=== PATIENT | female | born 1995 | race Caucasian/White ===

== ENCOUNTER 2017-01-30 09:57 | Emergency (ER) | payer OTHER ==
[2017-01-30] MEDS ORDERED: NS 1,000 ML IV ONE (10:58)
[2017-01-30] MEDS ORDERED: DEXAMETHASONE 10 MG/ML VIAL IVP ONE (10:58)
[2017-01-30] MEDS ORDERED: METOCLOPRAMIDE 10 MG/2 ML VIAL IVP ONE (10:58)
[2017-01-30] MEDS ORDERED: KETOROLAC 30 MG/1 ML SDV IVP ONE (10:58)
[2017-01-30 11:47] VITALS: PULSE 75; RESP 18
--- NOTE | 2017-01-30 12:34 | EDPHY ---
H & P Time Seen by Provider: 01/30/17 10:50 HPI/ROS: CHIEF COMPLAINT: Headache and worsening migraine HISTORY OF PRESENT ILLNESS: 21-year-old woman has a long history of migraine headaches and this ones identical to previous except she was vomiting some which she could not get her medications down. Symptoms started 3 days ago, not thunderclap in onset or worst of life. Identical to previous migraines with it being a headache on the top right side of her head associated with nausea and vomiting worse with bright light. No neck pain and no dizziness, no weakness or numbness in extremities, no vertigo or ataxia, no trouble with speech or balance. REVIEW OF SYSTEMS: Eye: no change in vision ENT: no sore throat Cardiac: no chest pain or syncope Pulmonary: no cough or SOB Abdomen: No abdominal pain Musculoskeletal: no back pain or neck pain Skin: no rash Neuro: HPI Constitutional: no fever : no urinary symptoms A comprehensive 10 point review of systems is otherwise negative aside from elements mentioned in the history of present illness. PAST MEDICAL HISTORY: Migraine headache Social history: Here with her mother, denies Family history: Positive for migraines. General Appearance: Alert and conversant, cooperative. Eyes: No scleral icterus. ENT, Mouth: Normal mucous membranes. Normal TMs. Respiratory: Normal respiratory effort, breath sounds equal, lungs are clear to auscultation. Cardiovascular: Regular rate and rhythm. Gastrointestinal: Abdomen is soft and non tender. Neurological: Alert and oriented x3. Normally conversant. Face symmetric, normal movement and sensation in all extremities. No pronator drift and normal [id number] bilaterally. Skin: Warm and dry, no rashes. Musculoskeletal: No peripheral edema and no joint swelling. Normal range of motion of the neck, no meningeal signs. Psychiatric: Not agitated. Emergency Department course/MDM: Patient presents with typical migraine symptoms for her with worsening nausea. Treated with 10 mg IV dexamethasone, 10 mg IV Reglan, 25 mg IV Benadryl, 30 mg IV Toradol. 1230: Sleeping, easily awakened, headache is almost completely gone, ready for discharge. Smoking Status: Never smoked Constitutional: Initial Vital Signs Temperature (C) 37 C 01/30/17 10:04 Heart Rate 71 01/30/17 10:04 Respiratory Rate 16 01/30/17 10:04 Blood Pressure 106/58 L 01/30/17 10:04 O2 Sat (%) 99 01/30/17 10:04 O2 Delivery Mode Room Air Allergies/Adverse Reactions: Penicillins Allergy (Verified 01/30/17 10:02) Home Medications: Medication Instructions Recorded AMITRIPTYLINE HCL 01/30/17 Compazine 01/30/17 Indomethacin 01/30/17 Nexplanon 01/30/17 Ondansetron Odt [Zofran Odt] 4 mg PO Q4PRN #6 tab 01/30/17 Relpax 01/30/17 Medical Decision Making Differential Diagnosis: Differential diagnosis considered for headache including but not limited to subarachnoid hemorrhage, migraine headache, tension headache and infectious causes such as meningitis, pharyngitis and sinusitis. - Data Points Medications Given: Discontinued Medications Dexamethasone (Decadron Injection) 10 mg IVP EDNOW ONE Stop: 01/30/17 10:59 Last Admin: 01/30/17 11:37 Dose: 10 mg Diphenhydramine HCl (Benadryl Injection) 25 mg IVP EDNOW ONE Stop: 01/30/17 10:59 Last Admin: 01/30/17 11:38 Dose: 25 mg Sodium Chloride (Ns) 1,000 mls @ 0 mls/hr IV ONCE ONE; Wide Open PRN Reason: Protocol Stop: 01/30/17 10:59 Last Admin: 01/30/17 11:35 Dose: 1,000 mls Ketorolac Tromethamine (Toradol) 30 mg IVP EDNOW ONE Stop: 01/30/17 10:59 Last Admin: 01/30/17 11:36 Dose: 30 mg Metoclopramide HCl (Reglan Injection) 10 mg IVP EDNOW ONE Stop: 01/30/17 10:59 Last Admin: 01/30/17 11:39 Dose: 10 mg Departure - Departure Disposition: Home, Routine, Self-Care Clinical Impression: Migraine headache Qualifiers: Migraine type: unspecified Status migrainosus presence: without status migrainosus Intractability: not intractable Qualified Code(s): G43.909 - Migraine, unspecified, not intractable, without status migrainosus Condition: Good Instructions: Migraine Headache (ED) Referrals: Reena Chong MD [Medical Doctor] - As per Instructions Prescriptions: Ondansetron Odt [Zofran Odt] 4 mg PO Q4PRN #6 tab
[2017-01-30 13:09] VITALS: BP 90/47; TEMP 98.4; O2SAT 95
== END 2017-01-30 13:09 | disposition home or self-care (01) ==
DX: G43.909 Migraine, unspecified, not intractable, without status migrainosus (principal); E86.9 Volume depletion, unspecified
CPT/HCPCS: 96374; J1100; J1200; J1885; J2765

== ENCOUNTER 2017-05-13 14:30 | Emergency (ER) | payer OTHER ==
[2017-05-13 14:45] VITALS: TEMP 98.6
[2017-05-13] MEDS ORDERED: NS 1,000 ML IV ONE (15:15)
[2017-05-13 15:39] LABS: PLATELET COUNT 192 10^3/uL (150-400)
[2017-05-13] MEDS ORDERED: DEXAMETHASONE 10 MG/ML VIAL IVP ONE (15:54)
[2017-05-13] MEDS ORDERED: KETOROLAC 30 MG/1 ML SDV IVP ONE (15:54)
[2017-05-13] MEDS ORDERED: METOCLOPRAMIDE 10 MG/2 ML VIAL IVP ONE (15:54)
[2017-05-13 16:13] VITALS: RESP 16
--- NOTE | 2017-05-13 17:08 | EDPHY ---
H & P Smoking Status: Never smoked Time Seen by Provider: 05/13/17 15:28 HPI/ROS: CHIEF COMPLAINT: Migraine headache HISTORY OF PRESENT ILLNESS: 21-year-old female presents to the emergency department with symptoms of migraine headache. The patient has longstanding history of migraine headaches since the age of 7. She states that this headache started approximately 5 days ago. It was not abrupt or thunderclap in onset. It feels like a typical migraine although this is more the front of her head. She feels nauseous and has vomited multiple times which is common for her. She is photophobic although no other change in vision. No neck or back pain. No reported trauma. No chest pain or difficulty breathing. Denies fever. Denies URI symptoms. She does have a scheduled appointment with her neurologist at the end of this month. She does not take maintenance medication for migraine headaches. She has had typically bad headaches every month. REVIEW OF SYSTEMS: Constitutional: No fever, no chills. Eyes: No double or blurry vision. ENT: No sore throat. Respiratory: No cough, no shortness of breath. Cardiac: No chest pain. Gastrointestinal: Nausea, vomiting. No abdominal pain or diarrhea. Genitourinary: No dysuria. Musculoskeletal: No neck or back pain. Skin: No rashes. Neurological: headache. (Negra Walker) Past Medical/Surgical History: Migraine headaches (Negra Walker) Social History: Lives with family in [place]. (Negra Walker) Physical Exam: General Appearance: Alert, no distress. Mentating normally and answering questions appropriately. Father at bedside. Patient is resting in a darkened room. Eyes: Pupils equal and round. Extraocular motions are all intact. ENT: Mouth: Mucous membranes moist. Respiratory: No wheezing, rhonchi, or rales, lungs are clear to auscultation. Cardiovascular: Regular rate and rhythm. Gastrointestinal: Abdomen is soft and nontender, no masses, no rebound or guarding, bowel sounds normal. Neurological: Alert and oriented x 3, cranial nerves II through XII grossly intact Skin: Warm and dry, no rashes. Musculoskeletal: Nontender to palpate along the cervical, thoracic or lumbar spine. Neck is supple. Extremities: Full range of motion and no peripheral edema. Psychiatric: Patient is oriented X 3, there is no agitation. (Negra Walker) Constitutional: Initial Vital Signs Temperature (C) 37 C 05/13/17 14:35 Heart Rate 63 05/13/17 14:35 Respiratory Rate 18 05/13/17 14:35 Blood Pressure 108/70 05/13/17 14:35 O2 Sat (%) 100 05/13/17 14:35 O2 Delivery Mode Room Air Allergies/Adverse Reactions: Penicillins Allergy (Verified 01/30/17 10:02) Home Medications: Medication Instructions Recorded Compazine 01/30/17 Nexplanon 01/30/17 Ondansetron Odt [Zofran Odt] 4 mg PO Q4PRN #6 tab 01/30/17 Relpax 01/30/17 Medical Decision Making ED Course/Re-evaluation: 21-year-old female presents to the emergency department with headache. The patient has a history of chronic migraine headaches. She feels that this headache is worse in that it has lasted for 5 days. She also states that the pattern is a bit different in that her pain is in the front of her head. She is nauseous and has been vomiting which is common for her. She is photophobic. She otherwise has a normal neurologic examination. I did discuss with the patient as well as father at bedside obtaining CT scan of her brain. The patient was medicated with dexamethasone, Toradol, Benadryl, and Phenergan IV. She also received IV normal saline. Her laboratory studies were all within normal limits. The patient states that she felt so dehydrated that she had urinated in nearly 2 days. Her creatinine was normal. Patient was re-evaluated and her headache was completely resolved. The patient is comfortable not obtaining CT imaging of her brain. I think this is reasonable. Patient was instructed to return to the emergency department she developed change in symptoms, worsening headache, altered mental status or any other concerns. (Negra Walker) Differential Diagnosis: Headache including but not limited to subarachnoid hemorrhage, migraine headache , tension headache and infectious causes such as meningitis, pharyngitis and sinusitis. (Negra Wakler) Other Provider: The patient was evaluated and managed by the Physician Bioprocess Engineer. My co- signature indicates that I have reviewed this chart and I agree with the findings and plan of care as documented. I am the secondary supervising physician. (Prisca Marvin) - Data Points Laboratory Results: Laboratory Results 05/13/17 15:20 05/13/17 15:20 Medications Given: Discontinued Medications Dexamethasone (Decadron Injection) 10 mg IVP EDNOW ONE Stop: 05/13/17 15:55 Last Admin: 05/13/17 16:04 Dose: 10 mg Diphenhydramine HCl (Benadryl Injection) 25 mg IVP EDNOW ONE Stop: 05/13/17 15:55 Last Admin: 05/13/17 16:04 Dose: 25 mg Sodium Chloride (Ns) 1,000 mls @ 0 mls/hr IV ONCE ONE PRN Reason: Wide Open Stop: 05/13/17 15:16 Last Admin: 05/13/17 16:05 Dose: 1,000 mls Ketorolac Tromethamine (Toradol) 30 mg IVP EDNOW ONE Stop: 05/13/17 15:55 Last Admin: 05/13/17 16:04 Dose: 30 mg Metoclopramide HCl (Reglan Injection) 10 mg IVP EDNOW ONE Stop: 05/13/17 15:55 Last Admin: 05/13/17 16:04 Dose: 10 mg Departure - Departure Disposition: Home, Routine, Self-Care Clinical Impression: Migraine Qualifiers: Migraine type: unspecified Status migrainosus presence: without status migrainosus Intractability: not intractable Qualified Code(s): G43.909 - Migraine, unspecified, not intractable, without status migrainosus Condition: Good Instructions: Migraine Headache (ED) Additional Instructions: Follow-up with urine neurologist as scheduled at the end of the month. Please return to the emergency department sooner if you have any change in symptoms or if you feel worse. Referrals: [facility] [Other] - As per Instructions
[2017-05-13 17:14] VITALS: BP 108/58; PULSE 80; O2SAT 96
== END 2017-05-13 17:14 | disposition home or self-care (01) ==
DX: G43.909 Migraine, unspecified, not intractable, without status migrainosus (principal); R11.2 Nausea with vomiting, unspecified
CPT/HCPCS: 96374; J1100; J1200; J1885; J2765

== ENCOUNTER 2018-07-21 18:09 | Emergency (ER) | payer OTHER ==
[2018-07-21] MEDS ORDERED: METOCLOPRAMIDE 10 MG/2 ML VIAL IVP ONE (20:02)
[2018-07-21] MEDS ORDERED: LORazepam 2 MG/ML INJ IVP ONE (20:02)
[2018-07-21] MEDS ORDERED: DEXAMETHASONE 10 MG/ML VIAL IVP ONE (20:02)
[2018-07-21] MEDS ORDERED: KETOROLAC 30 MG/1 ML SDV IVP ONE (20:02)
[2018-07-21] MEDS ORDERED: NS 1,000 ML IV ONE (20:03)
--- NOTE | 2018-07-21 21:28 | EDPHY ---
H & P Stated Complaint: Hx complex migraines, migraine today cN/V and R side numb. Time Seen by Provider: 07/21/18 19:48 HPI/ROS: Chief complaint: Migraine headache History of present illness: This is a 22-year-old female who presents to the emergency department for a migraine headache. She reports the onset of a typical type headache earlier tonight. She reports initially blurry vision followed by right-sided head pain and numbness along the right side of her body as well as nausea and vomiting and photophobia. She took her home migraine medications but threw them back up. She states this is a typical migraine for her. There is nothing new or different as compared to previous episodes. It was not thunderclap in nature. It is not the worst headache she has ever had. She denies associated signs or symptoms including no fevers or cold symptoms, no trauma. Review of systems: A 10 point review of systems was obtained and other than described above was negative. - Personal History Current Tetanus Diphtheria and Acellular Pertussis (TDAP): Yes - Medical/Surgical History Hx Asthma: No Hx Chronic Respiratory Disease: No Hx Diabetes: No Hx Cardiac Disease: No Hx Renal Disease: No Hx Cirrhosis: No Hx Alcoholism: No Hx HIV/AIDS: No Hx Splenectomy or Spleen Trauma: No Other PMH: MIGRAINE - Social History Smoking Status: Never smoked - Physical Exam Exam: General Appearance: Alert, nontoxic. Eyes: Pupils equal and round no pallor or injection. ENT, Mouth: Mucous membranes moist. Respiratory: There are no retractions, lungs are clear to auscultation. Cardiovascular: Regular rate and rhythm. Gastrointestinal: Abdomen is soft and non tender, no masses, bowel sounds normal. Neurological: Alert and oriented x4. Cranial nerves 2-12 grossly intact. Strength and sensation intact and symmetrical. No meningismus. Skin: Warm and dry, no rashes. Musculoskeletal: Neck is supple non tender. Extremities are symmetrical, full range of motion. Psychiatric: Patient is oriented X 3, there is no agitation. Constitutional: Initial Vital Signs Temperature (C) 36.8 C 07/21/18 18:19 Heart Rate 52 L 07/21/18 18:19 Respiratory Rate 16 07/21/18 18:19 Blood Pressure 89/57 L 07/21/18 18:19 O2 Sat (%) 97 05/13/19 18:19 O2 Delivery Mode Room Air Allergies/Adverse Reactions: Penicillins Allergy (Verified 07/21/18 18:19) Home Medications: Medication Instructions Recorded Compazine 01/30/17 Nexplanon 01/30/17 Ondansetron Odt [Zofran Odt] 4 mg PO Q4PRN #6 tab 01/30/17 Relpax 01/30/17 Medical Decision Making ED Course/Re-evaluation: Patient seen under the supervision of my secondary supervising physician Dr. Ivana Meneses. Patient presents to the emergency department for a migraine headache. She reports a typical type headache. Not controlled with home medications which has occurred in the past. No red flag risk factors are noted such as thunderclap in nature, worst headache of her life or focal neurologic deficits on exam. She is symptomatically treated with a migraine cocktail which has worked well for her in the past and states her symptoms have almost resolved. She is comfortable being discharged home. Home care is discussed. She is to follow up with a primary care doctor for recheck. Strict return precautions are given. The patient voiced understanding and agreement with plan. Differential Diagnosis: Included but not limited to migraine headache, tension headache, cluster headache, doubtful intracranial bleed or mass - Data Points Medications Given: Discontinued Medications Dexamethasone (Decadron Injection) 10 mg IVP EDNOW ONE Stop: 07/21/18 20:03 Last Admin: 07/21/18 20:20 Dose: 10 mg Diphenhydramine HCl (Benadryl Injection) 25 mg IVP EDNOW ONE Stop: 07/21/18 20:03 Last Admin: 07/21/18 20:19 Dose: 25 mg Sodium Chloride (Ns) 1,000 mls @ 0 mls/hr IV EDNOW ONE; Wide Open PRN Reason: Protocol Stop: 07/21/18 20:04 Last Admin: 07/21/18 20:17 Dose: 1,000 mls Ketorolac Tromethamine (Toradol) 30 mg IVP EDNOW ONE Stop: 07/21/18 20:03 Last Admin: 07/21/18 20:20 Dose: 30 mg Lorazepam (Ativan Injection) 1 mg IVP EDNOW ONE Stop: 07/21/18 20:03 Last Admin: 07/21/18 20:18 Dose: 1 mg Metoclopramide HCl (Reglan Injection) 10 mg IVP EDNOW ONE Stop: 07/21/18 20:03 Last Admin: 07/21/18 20:21 Dose: 10 mg Departure - Departure Disposition: Home, Routine, Self-Care Clinical Impression: Migraine Qualifiers: Migraine type: unspecified Status migrainosus presence: without status migrainosus Intractability: not intractable Qualified Code(s): G43.909 - Migraine, unspecified, not intractable, without status migrainosus Condition: Good Instructions: Migraine Headache (ED) Additional Instructions: Follow-up with your primary care doctor this week for recheck His symptoms recur or new symptoms develop please return to the emergency room for recheck Referrals: Renae Adkins DO [Primary Care Provider] - As per Instructions
[2018-07-21 21:48] VITALS: BP 95/59
== END 2018-07-21 21:47 | disposition home or self-care (01) ==
DX: G43.909 Migraine, unspecified, not intractable, without status migrainosus (principal); E86.9 Volume depletion, unspecified
CPT/HCPCS: 96374; J1100; J1200; J1885; J2060; J2765